=== PATIENT | female | born 1975 | race Caucasian/White ===

== ENCOUNTER → 2017-02-27 | Outpatient (CLI) | payer OTHER ==
--- NOTE | 2017-02-27 13:21 | MM ---
Reason for exam: clinical finding. History: Family history of breast cancer in sister. Benign excisional biopsy of the left breast, May 25, 2002. Indicated problem(s): lump or thickening in the left breast. Physical Findings: Nurse did not find any significant physical abnormalities on exam. MG Diagnostic Mammo w CAD ONEL Bilateral CC and MLO view(s) were taken. LM, spot compression MLO, and spot compression CC view(s) were taken of the left breast. The breast tissue is heterogeneously dense. This may lower the sensitivity of mammography. Developing asymmetry left posterior upper outer quadrant does not go away on additional views. Linear scar upper outer quadrant. These results were verbally communicated with the patient and result sheet given to the patient on 02/27/17. ASSESSMENT: Incomplete: need additional imaging evaluation, BI-RAD 0 RECOMMENDATION: Ultrasound of the left breast.
--- NOTE | 2017-02-27 13:25 | USB ---
Reason for exam: additional evaluation requested from abnormal screening. History: Family history of breast cancer in sister. Benign excisional biopsy of the left breast, May 25, 2002. US Breast Limited LT Left breast ultrasound demonstrates a 0.8 x 0.7 x 0.6cm solid lesion at 1:30. These results were verbally communicated with the patient and result sheet given to the patient on 02/27/17. ASSESSMENT: Suspicious, BI-RAD 4 RECOMMENDATION: Ultrasound core biopsy of the left breast. Called Dr. Russell with mammographic findings and has scheduled an appointment for the patient for 03/27/17 at 8:[address] Carter. Biopsy scheduled for 03/07/17 at 11:30. PRELIMINARY REPORT CALLED AND FAXED TO DR. CARTER ON 02/27/17 AT 300/TP.
== END | disposition home or self-care (01) ==
LOC: RADMAMWWP 10:07
PROVIDERS: ATTEND Family Medicine
DX: R92.8 Other abnormal and inconclusive findings on diagnostic imaging of breast (principal); N63 Unspecified lump in breast
CPT/HCPCS: 76642; G0204

== ENCOUNTER → 2017-03-12 | Day surgery (SDC) | payer OTHER ==
[2017-03-12 12:02] VITALS: BP 102/67; PULSE 82; RESP 12; TEMP 97.4; BMI 22.6
--- NOTE | 2017-03-12 15:00 | USB ---
EXAMINATION TYPE: US discontinued breast bx left DATE OF EXAM: 03/12/2017 CLINICAL HISTORY: R92.8 ABN ultrasound breast. TECHNIQUE: Scheduled Ultrasound guided core biopsy of left breast. Real-time linear array sonography is performed. COMPARISON: 02/27/2017 FINDINGS: Imaging was performed. The area in question of the left upper outer quadrant 1:30 position could not be reproduced at this time. Real-time observation, and real-time scanning was performed by the radiologist. 5 cm from the nipple no abnormality was identified. Imaging is compared to the mammo gram of 02/27/2017. IMPRESSION: 1. Probably benign findings, ultrasound. Recommendations: 1. Follow-up right breast mammogram 6 months. 2. Follow-up right breast ultrasound 6 months. 3. Patient should continue monthly self breast exam. 4. Negative ultrasound should not preclude biopsy of suspicious palpable areas.
== END ==
LOC: RADUSWWP 11:30
PROVIDERS: ATTEND Surgery
DX: R92.8 Other abnormal and inconclusive findings on diagnostic imaging of breast (principal)

== ENCOUNTER → 2017-04-30 | Outpatient (CLI) | payer OTHER ==
--- NOTE | 2017-05-01 08:00 | BMR ---
EXAMINATION TYPE: MR breast BILAT wo/w con DATE OF EXAM: 04/30/2017 HISTORY: abn mammogram, palpable lump left breast, history of benign lumpectomy 15 years ago. CONTRAST: Multiplanar, multisequence images of the breasts were acquired utilizing 15 mL intravenous MultiHance gadolinium contrast. TECHNIQUE: A series of fat and water weighted images in the long and short axis views of both breasts are obtained in conjunction with dynamic contrast MRI with subtraction technique. Three-dimensional and additional postprocessing imaging is created on independent workstation and reviewed during offi cial interpretation of this study. REFERENCE: Diagnostic bilateral breast mammogram February 27 2017 BI-RADS 0. Diagnostic left breast ultras ound February 27, 2017 BI-RADS 4. FINDINGS: There is background heterogeneously dense fibroglandular tissue present bilaterally. No landy picious skin thickening is seen bilaterally. There is fairly symmetric moderate background enhancemen t identified. Post contrast images demonstrate a 2.1 x 1.3 x 1.0 cm area of nonmass enhancement upper aspect of right breast roughly 4 cm from the nipple 1:00 level, dynamic imaging shows progressive be nign type enhancement. In addition there are scattered foci of benign type progressive enhancement th roughout both breasts identified. There is no suspicious mass or enhancement at area of mammogram and ultrasound concern posterior upper outer aspect of left breast near the chest wall. There are benign -appearing axillary lymph nodes noted bilaterally. Chest wall is intact. No suspicious intramammary a denopathy is seen. IMPRESSION: No MRI evidence for invasive malignancy in either breast. BI-RADS 2 benign findings right breast. BI-RADS 2 benign findings left breast. Recommendation: Would advise repeat diagnostic left breast mammogram and ultrasound in 5-6 months jim e to ensure benign findings left breast despite negative MRI due to prior abnormalities on these moda lities.
== END ==
LOC: RADMRIMAIN 12:06
PROVIDERS: ATTEND Surgery
DX: R92.8 Other abnormal and inconclusive findings on diagnostic imaging of breast (principal)
CPT/HCPCS: 0159T; C8908; A9577; 77059

== ENCOUNTER 2018-04-20 09:22 | Emergency (ER) | payer OTHER ==
--- NOTE | 2018-04-20 09:40 | ED ---
General Adult HPI - General Chief complaint: Extremity Injury, Upper Stated complaint: rt hand injury Time Seen by Provider: 04/20/18 09:31 Source: patient, RN notes reviewed Mode of arrival: ambulatory Limitations: no limitations - History of Present Illness Initial comments: Patient 42-year-old female presented to the emergency room today with a chief complaint of injury to the right hand that occurred this morning. She states she got into an argument on the phone with her boss. She states she was upset she punched a dresser drawer. She does admit to pain over the fifth digit and metacarpal. Patient denies any other complaints or symptoms. - Related Data Home Medications Medication Instructions Recorded Confirmed Ibuprofen [Motrin Ib] 400 mg PO Q6H PRN 04/20/18 04/20/18 Previous Rx's Medication Instructions Recorded Ibuprofen [Motrin] 600 mg PO Q6HR PRN #40 day 04/20/18 Allergies Allergy/AdvReac Type Severity Reaction Status Date / Time No Known Allergies Allergy Verified 04/20/18 09:44 Review of Systems ROS Statement: Those systems with pertinent positive or pertinent negative responses have been documented in the HPI. ROS Other: All systems not noted in ROS Statement are negative. Past Medical History Past Medical History: No Reported History History of Any Multi-Drug Resistant Organisms: None Reported Past Surgical History: Appendectomy, Section Additional Past Surgical History / Comment(s): eye Past Anesthesia/Blood Transfusion Reactions: No Reported Reaction Past Psychological History: No Psychological Hx Reported Smoking Status: Current every day smoker Past Alcohol Use History: None Reported Past Drug Use History: None Reported General Exam - General Exam Comments Initial Comments: General: The patient is awake and alert, in no distress, and does not appear acutely ill. Neck: The neck is supple, there is no tenderness or JVD. Musculoskeletal: Patient does have some bruising and swelling to the fifth digit and fifth metacarpal right hand. Sensations intact with cap refill less 2 seconds. Radial pulses 2+. Neurological: A&O x 3. CN II-XII intact, There are no obvious motor or sensory deficits. Coordination appears grossly intact. Speech is normal. Skin: Skin is warm and dry and no rashes or lesions are noted. Psychiatric: Normal mood and affect. Limitations: no limitations Course Vital Signs 04/20/18 09:24 Temperature 98 F Pulse Rate 68 Respiratory 18 Rate Blood Pressure 128/82 O2 Sat by Pulse 98 Oximetry Medical Decision Making - Medical Decision Making X-ray reviewed does show minimally displaced fracture of the proximal fifth digit of the right hand. Ulnar gutter was placed and some mild traction was used to reposition finger. Patient tolerated well. Patient is advised follow- up with orthopedics in the next emergency room symptoms and concerns. Disposition Clinical Impression: Finger fracture Disposition: HOME SELF-CARE Condition: Good Instructions: Finger Fracture (ED) Additional Instructions: Please continue to ice elevate the affected area splinted in place until follow- up appointment with orthopedics over the next 2 days. Please return to emergency room if the symptoms increase or worsen or for any other concerns. Prescriptions: Ibuprofen [Motrin] 600 mg PO Q6HR PRN #40 day PRN Reason: Pain Is patient prescribed a controlled substance at d/c from ED?: No Referrals: Miguel Russell MD [Primary Care Provider] - 1-2 days Kristopher Diaz MD [STAFF PHYSICIAN] - 1-2 days Time of Disposition: 10:13
--- NOTE | 2018-04-20 09:56 | XR ---
EXAMINATION TYPE: XR hand complete RT DATE OF EXAM: 04/20/2018 CLINICAL HISTORY: Fifth digit pain after punching dresser today. TECHNIQUE: Frontal, lateral and oblique images of the right hand are obtained. COMPARISON: None. FINDINGS: There is an angulated, minimally comminuted, mildly displaced impaction fracture of the met adiaphysis of the fifth proximal phalanx. There is approximately 7 mm ulnar-sided and 3 mm radial violeta ed cortical overlap from impaction. There is volar mild angulation and 2 mm anterior displacement of the markers distal fracture fragment. Overlying soft tissue swelling is seen. No intra-articular exte nsion. No additional fracture of the right hand. No radiopaque foreign body. IMPRESSION: Mildly comminuted, mildly angulated, mildly displaced impaction fracture of the proximal metadiaphysis of the fifth right proximal phalanx with overlying soft tissue swelling.
[2018-04-20] MEDS ORDERED: IBUPROFEN 600 MG TAB PO STA (10:13)
[2018-04-20 10:28] VITALS: BP 135/65; PULSE 56; RESP 17; TEMP 98.9
== END 2018-04-20 10:29 | disposition home or self-care (01) ==
LOC: EC 09:22
DX: S62.616A Displaced fracture of proximal phalanx of right little finger, initial encounter for closed fracture (principal); F17.200 Nicotine dependence, unspecified, uncomplicated; W22.8XXA Striking against or struck by other objects, initial encounter
CPT/HCPCS: 29125; 99283

== ENCOUNTER 2019-01-18 08:31 | Emergency (ER) | payer OTHER ==
[2019-01-18 08:38] VITALS: BP 131/78; PULSE 72; RESP 18; TEMP 97.9
[2019-01-18] MEDS ORDERED: KETOROLAC 60 MG/2 ML VIAL IM STA (08:56)
--- NOTE | 2019-01-18 09:13 | XR ---
EXAMINATION TYPE: XR cervical spine comp DATE OF EXAM: 01/18/2019 TECHNIQUE: Frontal, lateral, oblique, swimmers, and open mouth view of the cervical spine are obtaine d. HISTORY: Neck pain radiating to left arm COMPARISON: None FINDINGS: The cervical spine is visualized in its entirety from C1 thru the top of T1 level, it is s atisfactory in alignment without evidence of acute fracture or dislocation. Anterior osteophytes are seen at C5-C6 and C6-C7 with uncovertebral hypertrophy at this level. The pre-vertebral soft tissue appears within normal limits. The C1-C2 articulation is within normal limits on the open mouth view. The oblique images demonstrate mild neural foraminal narrowing at C5-C6 and C6-C7 bilaterally. IMPRESSION: No acute fracture or malalignment is seen in the cervical spine. Mild degenerative disc disease of the cervical spine at C5-C6 and C6-C7 resulting in mild radiographic bilateral neural fora chantel narrowing at these levels.
--- NOTE | 2019-01-18 09:24 | ED ---
Neck Injury/Pain HPI - General Chief Complaint: Neck Pain/Injury Stated Complaint: neck/shoulder pain Time Seen by Provider: 01/18/19 08:47 Source: patient, RN notes reviewed Mode of arrival: ambulatory Limitations: no limitations - History of Present Illness Initial Comments: 43-year-old female presents emergency Department chief complaint of neck pain, left arm pain. Patient states symptoms started 3 days ago when she woke up. Patient states pain has progressed. Patient states symptoms are worse with left arm movement. She does not have any current paresthesias. She states the pain rates and left-sided her neck down to her left elbow. Patient denies any trauma sagrario right-hand dominant. Patient states that symptoms are just exacerbated by movement of the left arm which was worse at work today. Denies chest pain or shortness breath. - Related Data Home Medications Medication Instructions Recorded Confirmed Multivitamins, Thera [Multivitamin 1 tab PO HS 01/18/19 01/18/19 (formulary)] Naproxen Sodium [Aleve] 440 mg PO DAILY PRN 01/18/19 01/18/19 Previous Rx's Medication Instructions Recorded Diazepam [Valium] 5 mg PO Q8HR PRN 3 Days #9 tab 01/18/19 Ibuprofen [Motrin] 600 mg PO Q8HR PRN #20 tab 01/18/19 Allergies Allergy/AdvReac Type Severity Reaction Status Date / Time No Known Allergies Allergy Verified 01/18/19 08:53 Review of Systems ROS Statement: Those systems with pertinent positive or pertinent negative responses have been documented in the HPI. ROS Other: All systems not noted in ROS Statement are negative. Past Medical History Past Medical History: No Reported History History of Any Multi-Drug Resistant Organisms: None Reported Past Surgical History: Appendectomy, Section Additional Past Surgical History / Comment(s): eye Past Anesthesia/Blood Transfusion Reactions: No Reported Reaction Past Psychological History: No Psychological Hx Reported Smoking Status: Current every day smoker Past Alcohol Use History: None Reported Past Drug Use History: None Reported General Exam Limitations: no limitations General appearance: alert, in no apparent distress Head exam: Present: atraumatic, normocephalic, normal inspection Eye exam: Present: normal appearance, PERRL, EOMI. Absent: scleral icterus, conjunctival injection, periorbital swelling ENT exam: Present: normal exam, normal oropharynx, mucous membranes moist, TM's normal bilaterally Neck exam: Present: normal inspection, tenderness (Tenderness to the left paraspinal region), full ROM (Patient has full range of motion though reports moderate discomfort especially with right rotation). Absent: meningismus, lymphadenopathy Respiratory exam: Present: normal lung sounds bilaterally. Absent: respiratory distress, wheezes, rales, rhonchi, stridor Cardiovascular Exam: Present: regular rate, normal rhythm, normal heart sounds. Absent: systolic murmur, diastolic murmur, rubs, gallop, clicks Extremities exam: Present: other (For range of motion of upper extremity, transitions manager strength equal bilaterally, radial pulses equal) Course Vital Signs 01/18/19 08:35 Temperature 97.9 F Pulse Rate 72 Respiratory 18 Rate Blood Pressure 131/78 O2 Sat by Pulse 100 Oximetry Medical Decision Making - Medical Decision Making 43-year-old female presented for left arm, left-sided neck discomfort. Patient has paraspinal tenderness and muscle spasms noted. X-ray was obtained shows degenerative changes C5-C6 C6-C7 Disposition Clinical Impression: Cervical radiculopathy, Cervical paraspinal muscle spasm Disposition: HOME SELF-CARE Condition: Stable Instructions (If sedation given, give patient instructions): Cervical Radiculopathy (ED), Acute Neck Pain (ED) Additional Instructions: Please return to the Emergency Department if symptoms worsen or any other concerns. Prescriptions: Ibuprofen [Motrin] 600 mg PO Q8HR PRN #20 tab PRN Reason: Pain Diazepam [Valium] 5 mg PO Q8HR PRN 3 Days #9 tab PRN Reason: muscle spasms Is patient prescribed a controlled substance at d/c from ED?: Yes When asked, does pt state using other controlled substances?: No If prescribed controlled substance>3 days was MAPS reviewed?: Prescribed <3 Days Referrals: Miguel Russell MD [Primary Care Provider] - 1-2 days Time of Disposition: 09:24
[2019-01-18] MEDS ORDERED: ACET/COD 300 MG/30 MG STARTER PACK 6 TAB BTL PO STA (09:25)
== END 2019-01-18 09:45 | disposition home or self-care (01) ==
LOC: EC 08:31
DX: M54.12 Radiculopathy, cervical region (principal); M47.892 Other spondylosis, cervical region; F17.200 Nicotine dependence, unspecified, uncomplicated
CPT/HCPCS: 72050; 99283; 96372; J1885

== ENCOUNTER 2019-03-31 16:38 | Emergency (ER) | payer OTHER ==
[2019-03-31 17:03] VITALS: RESP 18
[2019-03-31] MEDS ORDERED: PANTOPRAZOLE 40 MG TABLET PO STA ×2 (17:08→17:42)
[2019-03-31] MEDS ORDERED: MAG HYDROX/AL HYDROX/SIMETH 30 ML, HYOSCYAMINE ELIXIR 10 ML, CIMETIDINE HCL 300 MG, LID... PO STA ×4 (17:08)
--- NOTE | 2019-03-31 17:13 | ED ---
General Adult HPI - General Chief complaint: Chest Pain Stated complaint: Chest pain Time Seen by Provider: 03/31/19 16:40 Source: patient, RN notes reviewed Mode of arrival: ambulatory Limitations: no limitations - History of Present Illness Initial comments: This is a 43-year-old female who presents emergency Department complaining of heartburn. Patient states it started about 2 weeks ago and it is been intermittent tickly worse if she lays flat or if she eats something spicy. Patient states she's had this for years but the last 2 weeks she's been extremely bad. Patient states last night it started up again before she went to bed and has been constant ever since. Patient states it's a burning sensation in her chest. Patient denies any radiation of the pain. Patient denies any difficulty breathing or shortness of breath per patient denies any diaphoretic episodes. Patient denies any nausea or vomiting. Patient denies any abdominal pain. Patient denies any back pain. Patient states she has no history of diabetes high blood pressure or high cholesterol however she does smoke a pack a day. Patient denies any family history of heart problems. Patient denies any calf pain or leg swelling. - Related Data Home Medications Medication Instructions Recorded Confirmed Calcium Carbonate [Tums] 2,000 mg PO QID PRN 03/31/19 03/31/19 Omeprazole Magnesium [PriLOSEC OTC] 20 mg PO DAILY 03/31/19 03/31/19 Allergies Allergy/AdvReac Type Severity Reaction Status Date / Time No Known Allergies Allergy Verified 03/31/19 17:09 Review of Systems ROS Statement: Those systems with pertinent positive or pertinent negative responses have been documented in the HPI. ROS Other: All systems not noted in ROS Statement are negative. Past Medical History Past Medical History: No Reported History History of Any Multi-Drug Resistant Organisms: None Reported Past Surgical History: Appendectomy, Section Additional Past Surgical History / Comment(s): eye Past Anesthesia/Blood Transfusion Reactions: No Reported Reaction Past Psychological History: No Psychological Hx Reported Smoking Status: Current every day smoker Past Alcohol Use History: None Reported Past Drug Use History: None Reported General Exam - General Exam Comments Initial Comments: GENERAL: Patient is well-developed and well-nourished. Patient is nontoxic and well- hydrated and is in mild distress. ENT: Neck is soft and supple. No significant lymphadenopathy is noted. Oropharynx is clear. Moist mucous membranes. Neck has full range of motion without eliciting any pain. EYES: The sclera were anicteric and conjunctiva were pink and moist. Extraocular movements were intact and pupils were equal round and reactive to light. Eyelids were unremarkable. PULMONARY: Unlabored respirations. Good breath sounds bilaterally. No audible rales rhonchi or wheezing was noted. CARDIOVASCULAR: There is a regular rate and rhythm without any murmurs gallops or rubs. ABDOMEN: Soft and nontender with normal bowel sounds. No palpable organomegaly was noted. There is no palpable pulsatile mass. SKIN: Skin is clear with no lesions or rashes and otherwise unremarkable. NEUROLOGIC: Patient is alert and oriented x3. Cranial nerves II through XII are grossly intact. Motor and sensory are also intact. Normal speech, volume and content. Symmetrical smile. MUSCULOSKELETAL: Normal extremities with adequate strength and full range of motion. No lower extremity swelling or edema. No calf tenderness. LYMPHATICS: No significant lymphadenopathy is noted PSYCHIATRIC: Normal psychiatric evaluation. Limitations: no limitations Course Vital Signs 03/31/19 03/31/19 03/31/19 16:39 17:02 17:45 Temperature 98.3 F Pulse Rate 80 64 71 Respiratory 16 18 18 Rate Blood Pressure 135/85 115/102 122/79 O2 Sat by Pulse 100 100 100 Oximetry 03/31/19 19:04 Temperature Pulse Rate 68 Respiratory 18 Rate Blood Pressure 121/79 O2 Sat by Pulse 100 Oximetry Medical Decision Making - Medical Decision Making EKG shows normal sinus rhythm at 60 bpm NH interval is 160 QRS is 82 QT interval 382 QTC is 406. Patient's EKG shows no ST segment elevation or depression or T wave abnormalities are noted. Patient received a GI cocktail when I went back into reevaluate the patient she stated that it took away about 80-90% of her discomfort. Patient states she still has a little burning sensation. Patient's labs came back within normal limits as did her chest x-ray I went back to talk to the patient she wanted to be discharged home and follow-up with her primary medical care doctor. - Lab Data Result diagrams: 03/31/19 17:00 03/31/19 17:00 Lab Results 03/31/19 03/31/19 03/31/19 Range/Units 17:00 17:00 17:00 WBC 11.0 H (3.8-10.6) k/uL RBC 4.61 (3.80-5.40) m/uL Hgb 14.9 (11.4-16.0) gm/dL Hct 43.7 (34.0-46.0) % MCV 94.7 (80.0-100.0) fL MCH 32.3 (25.0-35.0) pg MCHC 34.1 (31.0-37.0) g/dL RDW 12.8 (11.5-15.5) % Plt Count 364 (150-450) k/uL Neutrophils % 68 % Lymphocytes % 23 % Monocytes % 5 % Eosinophils % 1 % Basophils % 0 % Neutrophils # 7.5 (1.3-7.7) k/uL Lymphocytes # 2.5 (1.0-4.8) k/uL Monocytes # 0.6 (0-1.0) k/uL Eosinophils # 0.1 (0-0.7) k/uL Basophils # 0.0 (0-0.2) k/uL PT 10.4 (9.0-12.0) sec INR 1.0 (<1.2) APTT 26.1 (22.0-30.0) sec Sodium 138 (137-145) mmol/L Potassium 4.6 (3.5-5.1) mmol/L Chloride 104 (98-107) mmol/L Carbon Dioxide 23 (22-30) mmol/L Anion Gap 11 mmol/L BUN 16 (7-17) mg/dL Creatinine 0.98 (0.52-1.04) mg/dL Est GFR (CKD-EPI)AfAm 82 (>60 ml/min/1.73 sqM) Est GFR (CKD-EPI)NonAf 71 (>60 ml/min/1.73 sqM) Glucose 89 (74-99) mg/dL Calcium 11.5 H (8.4-10.2) mg/dL Magnesium 2.0 (1.6-2.3) mg/dL Total Bilirubin 0.8 (0.2-1.3) mg/dL AST 22 (14-36) U/L ALT 24 (9-52) U/L Alkaline Phosphatase 69 (38-126) U/L Troponin I (0.000-0.034) ng/mL Total Protein 7.7 (6.3-8.2) g/dL Albumin 4.8 (3.5-5.0) g/dL 03/31/19 Range/Units 17:00 WBC (3.8-10.6) k/uL RBC (3.80-5.40) m/uL Hgb (11.4-16.0) gm/dL Hct (34.0-46.0) % MCV (80.0-100.0) fL MCH (25.0-35.0) pg MCHC (31.0-37.0) g/dL RDW (11.5-15.5) % Plt Count (150-450) k/uL Neutrophils % % Lymphocytes % % Monocytes % % Eosinophils % % Basophils % % Neutrophils # (1.3-7.7) k/uL Lymphocytes # (1.0-4.8) k/uL Monocytes # (0-1.0) k/uL Eosinophils # (0-0.7) k/uL Basophils # (0-0.2) k/uL PT (9.0-12.0) sec INR (<1.2) APTT (22.0-30.0) sec Sodium (137-145) mmol/L Potassium (3.5-5.1) mmol/L Chloride (98-107) mmol/L Carbon Dioxide (22-30) mmol/L Anion Gap mmol/L BUN (7-17) mg/dL Creatinine (0.52-1.04) mg/dL Est GFR (CKD-EPI)AfAm (>60 ml/min/1.73 sqM) Est GFR (CKD-EPI)NonAf (>60 ml/min/1.73 sqM) Glucose (74-99) mg/dL Calcium (8.4-10.2) mg/dL Magnesium (1.6-2.3) mg/dL Total Bilirubin (0.2-1.3) mg/dL AST (14-36) U/L ALT (9-52) U/L Alkaline Phosphatase (38-126) U/L Troponin I <0.012 (0.000-0.034) ng/mL Total Protein (6.3-8.2) g/dL Albumin (3.5-5.0) g/dL Disposition Clinical Impression: Gastroesophageal reflux disease Disposition: HOME SELF-CARE Condition: Good Instructions (If sedation given, give patient instructions): Gastroesophageal Reflux Disease (ED) Additional Instructions: Patient should continue taking Prilosec daily Is patient prescribed a controlled substance at d/c from ED?: No Referrals: Miguel Russell MD [Primary Care Provider] - 1-2 days Time of Disposition: 20:01
--- NOTE | 2019-03-31 17:27 | XR ---
EXAMINATION TYPE: XR chest 2V DATE OF EXAM: 03/31/2019 COMPARISON: NONE HISTORY: Chest pain TECHNIQUE: Frontal and lateral views of the chest are obtained. FINDINGS: Heart and mediastinum are normal. Lungs are clear. Diaphragm is normal. Bony thorax appear s normal. IMPRESSION: Normal chest.
[2019-03-31 17:28] LABS: Basophils % (A) 0 %; Eosinophils # (A) 0.1 k/uL (0-0.7); Eosinophils % (A) 1 %; HCT 43.7 % (34.0-46.0); HGB 14.9 gm/dL (11.4-16.0); Lymphocytes # (A) 2.5 k/uL (1.0-4.8); Lymphocytes % (A) 23 %; MCH 32.3 pg (25.0-35.0); MCHC 34.1 g/dL (31.0-37.0); MCV 94.7 fL (80.0-100.0); Mean Platelet Volume 6.6; Monocytes # (A) 0.6 k/uL (0-1.0); Monocytes % (A) 5 %; Neutrophils # (A) 7.5 k/uL (1.3-7.7); Neutrophils % (A) 68 %; Platelet Count 364 k/uL (150-450); RBC 4.61 m/uL (3.80-5.40); RDW 12.8 % (11.5-15.5)
[2019-03-31 17:34] LABS: Albumin 4.8 g/dL (3.5-5.0); Calcium 11.5 mg/dL (8.4-10.2); Potassium 4.6 mmol/L (3.5-5.1); Total Bilirubin 0.8 mg/dL (0.2-1.3); Total Protein 7.7 g/dL (6.3-8.2)
[2019-03-31 17:37] LABS: Partial Thromboplastin Time 26.1 sec (22.0-30.0); Prothrombin Time 10.4 sec (9.0-12.0)
[2019-03-31 20:10] VITALS: BP 112/83; PULSE 67; TEMP 99.1
== END 2019-03-31 20:08 | disposition home or self-care (01) ==
LOC: EC 16:38
DX: K21.9 Gastro-esophageal reflux disease without esophagitis (principal); F17.200 Nicotine dependence, unspecified, uncomplicated
CPT/HCPCS: 36415; 71046; 80053; 83735; 84484; 85025; 85610; 85730; 93005; 99285

== ENCOUNTER 2019-08-09 09:56 | Emergency (ER) | payer OTHER ==
[2019-08-09 10:02] VITALS: RESP 18
--- NOTE | 2019-08-09 11:25 | XR ---
EXAMINATION TYPE: XR knee complete LT DATE OF EXAM: 08/09/2019 CLINICAL HISTORY: Left knee pain with no known injury TECHNIQUE: Three views of the left knee are obtained. COMPARISON: None. FINDINGS: There is no acute fracture/dislocation evident in left knee. The tri-compartment joint sp aces appear aligned with minimal medial compartment joint space narrowing and very small marginal ost eophytes of the medial compartment. The overlying soft tissue appears unremarkable. IMPRESSION: There is no acute fracture or dislocation in the left knee. Mild medial compartment arth ropathy.
--- NOTE | 2019-08-09 11:32 | ED ---
Lower Extremity Injury HPI - General Chief Complaint: Extremity Injury, Lower Stated Complaint: Leg pain Source: patient Mode of arrival: ambulatory Limitations: no limitations - History of Present Illness Initial Comments: 44-year-old female presenting for left leg pain and redness. Patient states she has pain along the medial aspect just distal to the knee. Patient states is tender to touch in this area. Patient states it began yesterday evening. Patient has a fever or flulike symptoms denies any coolness or pallor of the extremity denies any injury loss of sensation or decreased range of motion of the left knee joint patient denies any other complaints remaining review of systems negative upon arrival patient appears well no signs of acute distress - Related Data Home Medications Medication Instructions Recorded Confirmed Calcium Carbonate [Tums] 2,000 mg PO QID PRN 03/31/19 03/31/19 Omeprazole Magnesium [PriLOSEC OTC] 20 mg PO DAILY 03/31/19 03/31/19 Previous Rx's Medication Instructions Recorded Cephalexin [Keflex] 500 mg PO Q6HR 7 Days #28 cap 08/09/19 Allergies Allergy/AdvReac Type Severity Reaction Status Date / Time No Known Allergies Allergy Verified 08/09/19 09:59 Review of Systems ROS Statement: Those systems with pertinent positive or pertinent negative responses have been documented in the HPI. ROS Other: All systems not noted in ROS Statement are negative. Past Medical History Past Medical History: No Reported History History of Any Multi-Drug Resistant Organisms: None Reported Past Surgical History: Appendectomy, Section Additional Past Surgical History / Comment(s): eye Past Anesthesia/Blood Transfusion Reactions: No Reported Reaction Past Psychological History: No Psychological Hx Reported Smoking Status: Current every day smoker Past Alcohol Use History: None Reported Past Drug Use History: None Reported General Exam - General Exam Comments Initial Comments: General: The patient is awake and alert, in no distress, and does not appear acutely ill. Eye: +3 mm pupils are equal, round and reactive to light, extra-ocular movements are intact. No nystagmus. There is normal conjunctiva bilaterally. No signs of icterus. Cardiovascular: There is a regular rate and rhythm. No murmur, rub or gallop is appreciated. Respiratory: Lungs are clear to auscultation, respirations are non-labored, breath sounds are equal. No wheezes, stridor, rales, or rhonchi. Gastrointestinal: Soft, non-distended, non-tender abdomen without masses or organomegaly noted. There is no rebound or guarding present. Musculoskeletal: Normal ROM, no tenderness at the knees bilaterally and ankles. Strength 5/5 of the lower extremities equal and comparison bilaterally. Sensation intact. Pulses equal bilaterally 2+. Neurological: A&O x 3. CN II-XII intact grossly, There are no obvious motor or sensory deficits. Coordination appears grossly intact. Speech is normal. Skin: Skin is warm and dry and no rashes or lesions are noted. pain or swelling. Negative Homans bilaterally. Patient has mild soft tissue swelling and redness of the anterior proximal tibia extending medially. Masses. Psychiatric: Cooperative, appropriate mood & affect, normal judgment. Limitations: no limitations Course Vital Signs 08/09/19 08/09/19 10:00 11:46 Temperature 97.1 F L 99.0 F Pulse Rate 76 64 Respiratory 18 18 Rate Blood Pressure 134/79 100/65 O2 Sat by Pulse 100 98 Oximetry Medical Decision Making - Medical Decision Making 44-year-old female presenting for slight redness and swelling of the knee just distal to the joint. NG states negative for osseous process. No limitations and joint range of motion or diffuse joint swelling. Given the extension to the medial aspect DVT was ruled out with ultrasound. Patient has no history or known risk factors. Given the slight redness there's concern for developing cellulitis patient was started on antibiotic therapy return parameters discussed case discussed with attending provider and patient was discharged appearing well Disposition Clinical Impression: Leg pain Disposition: HOME SELF-CARE Condition: Good Instructions (If sedation given, give patient instructions): Cellulitis (ED) Additional Instructions: Please use medication as discussed. Please follow-up with family doctor in the next 2 days.. Please return to emergency room if the symptoms increase or worsen or for any other concerns. Prescriptions: Cephalexin [Keflex] 500 mg PO Q6HR 7 Days #28 cap Is patient prescribed a controlled substance at d/c from ED?: No Referrals: Miguel Russell MD [Primary Care Provider] - 1-2 days Time of Disposition: 11:42
--- NOTE | 2019-08-09 11:38 | US ---
EXAMINATION TYPE: US venous doppler duplex LE LT DATE OF EXAM: 08/09/2019 11:01 AM COMPARISON: NONE CLINICAL HISTORY: redness/swelling, medial aspect of knee?. tenderness left knee SIDE PERFORMED: left TECHNIQUE: The lower extremity deep venous system is examined utilizing real time linear array sonog zoë with graded compression, doppler sonography and color-flow sonography. VESSELS IMAGED: External Iliac Vein (EIV) Common Femoral Vein Deep Femoral Vein Greater Saphenous Vein * Femoral Vein Popliteal Vein Small Saphenous Vein * Proximal Calf Veins (* superficial vessels) Grayscale, color doppler, spectral doppler imaging performed of the deep veins of the left lower extr emity. There is normal flow, compressibility, vascular waveforms. Left Leg: No evidence of DVT IMPRESSION: No sonographic evidence of deep venous thrombosis within the left lower chimney.
[2019-08-09 11:47] VITALS: BP 100/65; PULSE 64; TEMP 99
== END 2019-08-09 12:01 | disposition home or self-care (01) ==
LOC: EC 09:56
DX: M79.605 Pain in left leg (principal); M79.89 Other specified soft tissue disorders; R23.8 Other skin changes; F17.200 Nicotine dependence, unspecified, uncomplicated; Z79.899 Other long term (current) drug therapy
CPT/HCPCS: 99284

== ENCOUNTER 2021-08-01 12:23 | Emergency (ER) | payer BC, OTHER ==
[2021-08-01] MEDS ORDERED: SUMAtriptan succinate 6 MG/0.5 ML VIAL SQ STA (13:18)
--- NOTE | 2021-08-01 13:50 | ED ---
Headache HPI - General Chief Complaint: Headache Stated Complaint: headache Time Seen by Provider: 08/01/21 12:30 Mode of arrival: ambulatory Limitations: no limitations - History of Present Illness Initial Comments: 46-year-old female presents to the emergency department with reported migraine. Patient has a history of such. She used to follow with a neurologist in the past. States she's had a complete workup to include an MRI and lumbar puncture. She had a tragus piercing done 5 years ago and states that she has not had a headache since. Reports that last night she woke up with a migraine headache consistent with her previous headaches. She denies any fevers, neck stiffness or sick contacts. Admits to photophobia. Admits to nausea with an episode of vomiting last night. This morning she went to the health Department and got her first Covid vaccine. She presents with a low-grade fever however she attributes it to her vaccination. States that she did not have a low-grade fever prior. She denies any head trauma. No vision changes. No chest pain, shortness of breath, cough, abdominal pain. No other alleviating, precipitating or modifying factors - Related Data Home Medications Medication Instructions Recorded Confirmed Naproxen Sodium [Aleve] 220 mg PO DAILY PRN 08/01/21 08/01/21 Allergies Allergy/AdvReac Type Severity Reaction Status Date / Time No Known Allergies Allergy Verified 08/01/21 15:18 Review of Systems ROS Statement: Those systems with pertinent positive or pertinent negative responses have been documented in the HPI. ROS Other: All systems not noted in ROS Statement are negative. Past Medical History Past Medical History: No Reported History Additional Past Medical History / Comment(s): migraines History of Any Multi-Drug Resistant Organisms: None Reported Past Surgical History: Appendectomy, Section Additional Past Surgical History / Comment(s): eye Past Anesthesia/Blood Transfusion Reactions: No Reported Reaction Past Psychological History: No Psychological Hx Reported Smoking Status: Current every day smoker Past Alcohol Use History: Occasional Past Drug Use History: Marijuana General Exam Limitations: no limitations General appearance: alert, in no apparent distress Head exam: Present: atraumatic, normocephalic, normal inspection Eye exam: Present: normal appearance, PERRL, EOMI. Absent: scleral icterus, conjunctival injection, periorbital swelling ENT exam: Present: normal exam, mucous membranes moist Neck exam: Present: normal inspection. Absent: tenderness, meningismus, lymphadenopathy Respiratory exam: Present: normal lung sounds bilaterally. Absent: respiratory distress, wheezes, rales, rhonchi, stridor Cardiovascular Exam: Present: regular rate, normal rhythm, normal heart sounds. Absent: systolic murmur, diastolic murmur, rubs, gallop, clicks GI/Abdominal exam: Present: soft, normal bowel sounds. Absent: distended, tenderness, guarding, rebound, rigid Extremities exam: Present: normal inspection, full ROM, normal capillary refill. Absent: tenderness, pedal edema, joint swelling, calf tenderness Back exam: Present: normal inspection Neurological exam: Present: alert, oriented X3, CN II-XII intact Psychiatric exam: Present: normal affect, normal mood Skin exam: Present: warm, dry, intact, normal color. Absent: rash Course Vital Signs 08/01/21 08/01/21 12:27 16:30 Temperature 99.8 F H 98.9 F Pulse Rate 80 86 Respiratory 18 17 Rate Blood Pressure 121/74 118/70 O2 Sat by Pulse 98 99 Oximetry - Reevaluation(s) Reevaluation #1: 08/01/21 15:01 patient re-evaluated. Just got imitrex. states headache slightly improved. offered nausea medications which she agreed to. as soon as I return to the computer to place order, get call from nurse saying patient is throwing up. Medical Decision Making - Medical Decision Making Upon arrival the patient is placed in a hallway 23. Thorough history and physical exam was performed. Patient reports to chronic migraine history which is relieved by Imitrex. Patient was given a dose. Shortly afterwards she is reevaluated and reports improvement in her headache however she begins having some nausea. She's given a dose of Toradol for additional pain control. IV is established and the patient is given a dose of saline, 10 mg of Reglan and 25 mg of Benadryl. Patient is reevaluated and vomiting has stopped. She feels comfortable for discharge at this time. Patient is instructed to follow up with the primary care doctor to in 2-4 days. Return if she does not have improvement in her symptoms. Patient agreed and was discharged home in stable condition Disposition Clinical Impression: Migraine Disposition: HOME SELF-CARE Condition: Stable Instructions (If sedation given, give patient instructions): Acute Headache (ED) Additional Instructions: Please follow-up with your primary care doctor in 2-4 days. Return to the emergency department for any new or worsening symptoms Is patient prescribed a controlled substance at d/c from ED?: No Referrals: None,Stated [Primary Care Provider] - 1-2 days Time of Disposition: 16:10
[2021-08-01] MEDS ORDERED: ONDANSETRON 4 MG/2 ML VIAL IVP STA (15:00)
[2021-08-01] MEDS ORDERED: KETOROLAC 15 MG/ML 1 ML VIAL IM STA (15:00)
[2021-08-01] MEDS ORDERED: SODIUM CHLORIDE 0.9% 1,000 ML IV STA (15:18)
[2021-08-01] MEDS ORDERED: METOCLOPRAMIDE 5 MG/ML 2 ML VIAL IVP STA (15:18)
[2021-08-01] MEDS ORDERED: diphenhydrAMINE 50 MG/ML 1 ML VIAL IVP STA (15:18)
[2021-08-01] MEDS ORDERED: DEXAMETHASONE SOD PHOSPHATE 10 MG/ML 1 ML VIAL IV STA (15:18)
[2021-08-01 16:36] VITALS: BP 118/70; PULSE 86; RESP 17; TEMP 98.9
== END 2021-08-01 16:30 | disposition home or self-care (01) ==
LOC: EC 12:23
DX: G43.909 Migraine, unspecified, not intractable, without status migrainosus (principal); F17.200 Nicotine dependence, unspecified, uncomplicated
CPT/HCPCS: 99284; 96374; 96375; 96372; J3030; J1200; J1100; J2765; J2405; J1885

== ENCOUNTER 2022-09-06 03:20 | Emergency (ER) | payer BC, OTHER ==
[2022-09-06 03:33] VITALS: BP 132/76; PULSE 87; RESP 16; TEMP 98
--- NOTE | 2022-09-06 04:52 | ED ---
URI HPI - General Chief Complaint: Upper Respiratory Infection Stated Complaint: Covid Exposure Time Seen by Provider: 09/06/22 03:57 Source: patient, RN notes reviewed, old records reviewed Mode of arrival: ambulatory Limitations: no limitations - History of Present Illness Initial Comments: This is a 47-year-old female to the emergency department for evaluation patient Dese for evaluation regards to maybe a mild headache but mostly complaining of coronavirus testing is needed for coronavirus testing due to having a positive exposure. MD Complaint: cough (Out headache) -: days(s) Severity: mild Severity scale (1-10): 1 Consistency: intermittent Improves With: nothing Worsens With: nothing Context: sick contacts Associated Symptoms: denies other symptoms Treatments Prior to Arrival: none - Related Data Home Medications Medication Instructions Recorded Confirmed Naproxen Sodium [Aleve] 220 mg PO DAILY PRN 08/01/21 08/01/21 Allergies Allergy/AdvReac Type Severity Reaction Status Date / Time No Known Allergies Allergy Verified 09/06/22 03:31 Review of Systems ROS Statement: Those systems with pertinent positive or pertinent negative responses have been documented in the HPI. ROS Other: All systems not noted in ROS Statement are negative. Past Medical History Past Medical History: No Reported History Additional Past Medical History / Comment(s): migraines History of Any Multi-Drug Resistant Organisms: None Reported Past Surgical History: Appendectomy, Section Additional Past Surgical History / Comment(s): eye Past Anesthesia/Blood Transfusion Reactions: No Reported Reaction Past Psychological History: No Psychological Hx Reported Smoking Status: Current every day smoker Past Alcohol Use History: Occasional Past Drug Use History: Marijuana General Exam Limitations: no limitations General appearance: alert, in no apparent distress Head exam: Present: atraumatic, normocephalic, normal inspection Eye exam: Present: normal appearance, PERRL, EOMI. Absent: scleral icterus, conjunctival injection, periorbital swelling ENT exam: Present: normal exam, mucous membranes moist Neck exam: Present: normal inspection. Absent: tenderness, meningismus, lymphadenopathy Respiratory exam: Present: normal lung sounds bilaterally. Absent: respiratory distress, wheezes, rales, rhonchi, stridor Cardiovascular Exam: Present: regular rate, normal rhythm, normal heart sounds. Absent: systolic murmur, diastolic murmur, rubs, gallop, clicks GI/Abdominal exam: Present: soft, normal bowel sounds. Absent: distended, tenderness, guarding, rebound, rigid Extremities exam: Present: normal inspection, full ROM, normal capillary refill. Absent: tenderness, pedal edema, joint swelling, calf tenderness Back exam: Present: normal inspection Neurological exam: Present: alert, oriented X3, CN II-XII intact Psychiatric exam: Present: normal affect, normal mood Skin exam: Present: warm, dry, intact, normal color. Absent: rash Course Vital Signs 09/06/22 03:31 Temperature 98 F Pulse Rate 87 Respiratory 16 Rate Blood Pressure 132/76 O2 Sat by Pulse 98 Oximetry - Reevaluation(s) Reevaluation #1: 09/05/22 Medical record is reviewed Patient symptoms improved here in the ER Patient informed of results and questions answered Medical Decision Making - Medical Decision Making 47 female to the emergency department for evaluation with a coronavirus exposure patient is positive for coronavirus and can be discharged home - Lab Data Lab Results 09/06/22 Range/Units 03:34 Coronavirus (PCR) Detected A (Not Detectd) Disposition Clinical Impression: Coronavirus infection Disposition: HOME SELF-CARE Condition: Good Instructions (If sedation given, give patient instructions): Coronavirus Disease 2019 (COVID-19) Is patient prescribed a controlled substance at d/c from ED?: No Referrals: Miguel Russell MD [Primary Care Provider] - 1-2 days
== END 2022-09-06 05:00 | disposition home or self-care (01) ==
LOC: EC 03:20
DX: U07.1 COVID-19 (principal); F17.200 Nicotine dependence, unspecified, uncomplicated; F12.90 Cannabis use, unspecified, uncomplicated
CPT/HCPCS: 87635; 99283

== ENCOUNTER 2023-08-20 02:09 | Emergency (ER) | payer BC, OTHER ==
[2023-08-20 02:28] VITALS: RESP 18
[2023-08-20] MEDS ORDERED: IBUPROFEN 800 MG TAB PO STA (02:54)
[2023-08-20] MEDS ORDERED: LIDOCAINE 5% PATCH TOPICAL STA (02:54)
--- NOTE | 2023-08-20 03:00 | ED ---
General Adult HPI - General Chief complaint: Back Pain/Injury Stated complaint: Lower back pain Time Seen by Provider: 08/20/23 02:48 Source: patient, RN notes reviewed, old records reviewed Mode of arrival: ambulatory Limitations: no limitations - History of Present Illness Initial comments: Patient is a 48-year-old female who presents emergency Department complaining of low back pain. Woke up this evening with low back pain. No history of it. Atraumatic. Denies any saddle anesthesias, lower extremity paralysis, urinary/bowel incontinence or retention treated. States it is worse with movement. No recent dysuria or hematuria. No abdominal pain. No nausea or vomiting. No other symptoms. is focal located to the right lower back. Presents for further evaluation. - Related Data Home Medications Medication Instructions Recorded Confirmed Naproxen Sodium [Aleve] 220 mg PO DAILY PRN 08/01/21 08/01/21 Previous Rx's Medication Instructions Recorded Lidocaine 5% Patch [Lidoderm 5% 1 each TP DAILY PRN 14 Days #14 08/20/23 Patch] patch Allergies Allergy/AdvReac Type Severity Reaction Status Date / Time No Known Allergies Allergy Verified 08/20/23 02:21 Review of Systems ROS Statement: Those systems with pertinent positive or pertinent negative responses have been documented in the HPI. Review of Systems: CONST: Denies fever EYES: Denies blurry vision ENT: Denies nasal congestion C/V: Denies Chest pain RESP: Denies shortness of breath GI: Denies abdominal pain : Denies dysuria SKIN: Denies rash. MSK: Endorses right lower back pain NEURO: Denies headache ROS Other: All systems not noted in ROS Statement are negative. Past Medical History Past Medical History: No Reported History Additional Past Medical History / Comment(s): migraines History of Any Multi-Drug Resistant Organisms: None Reported Past Surgical History: Appendectomy, Section Additional Past Surgical History / Comment(s): eye Past Anesthesia/Blood Transfusion Reactions: No Reported Reaction Past Psychological History: No Psychological Hx Reported Smoking Status: Current every day smoker Past Alcohol Use History: Occasional Past Drug Use History: Marijuana General Exam - General Exam Comments Initial Comments: General: Appears in no acute distress. HEAD: Normal with no signs of head trauma. EYES: EOMI. ENT: Hearing grossly intact. RESPIRATORY: No respiratory distress. C/V: Regular rate and rhythm. ABD: Abdomen is nondistended. EXT: No obvious deformity. Midline lower lumbar spine tenderness to palpation with radiation to the right paraspinal muscles. SKIN: No rashes or lesions observed on exposed skin. NEURO: Alert and oriented. Limitations: no limitations Course Vital Signs 08/20/23 08/20/23 02:20 04:41 Temperature 98 F 99.3 F Pulse Rate 59 L 58 L Respiratory 18 18 Rate Blood Pressure 123/78 126/80 O2 Sat by Pulse 99 100 Oximetry Medical Decision Making - Medical Decision Making Was pt. sent in by a medical professional or institution (, PA, ACDS BLOCK 1 OPERATOR, urgent care, hospital, or correction...) When possible be specific @ -No Did you speak to anyone other than the patient for history (EMS, parent, family, police, friend...)? What history was obtained from this source @ -No Did you review nursing and triage notes (agree or disagree)? Why? @ -I reviewed and agree with nursing and triage notes Were old charts reviewed (outside hosp., previous admission, EMS record, old EKG, old radiological studies, urgent care reports/EKG's, correction records)? Report findings @ -No old charts were reviewed Differential Diagnosis (chest pain, altered mental status, abdominal pain women, abdominal pain men, vaginal bleeding, weakness, fever, dyspnea, syncope, headache, dizziness, GI bleed, back pain, seizure, CVA, palpatations, mental health, musculoskeletal)? @ -Differential Back Pain: Strain, zoster, cauda equina syndrome, epidural abscess, vertebral osteomyelitis, discitis, fracture, subluxation, disc herniation, DJD, spinal stenosis, dissection, AAA, pancreatitis, peptic ulcer disease, pyelonephritis, kidney stone, this is not meant to be an all-inclusive list. EKG interpreted by me (3pts min.). @ -None done X-rays interpreted by me (1pt min.). @ -X-ray shows no obvious acute traumatic injury to the lumbar spine. CT interpreted by me (1pt min.). @ -None done U/S interpreted by me (1pt. min.). @ -None done What testing was considered but not performed or refused? (CT, X-rays, U/S, labs)? Why? @ -None What meds were considered but not given or refused? Why? @ -None Did you discuss the management of the patient with other professionals (professionals i.e. , PA, ACDS BLOCK 1 OPERATOR, lab, RT, psych nurse, drug abuse social worker, morning show newscast producer, teacher, bomb squad officer, casework manager)? Give summary @ -No Was smoking cessation discussed for >3mins.? @ -No Was critical care preformed (if so, how long)? @ -No Were there social determinants of health that impacted care today? How? (Homelessness, low income, unemployed, alcoholism, drug addiction, transportation, low edu. Level, literacy, decrease access to med. care, senior care, rehab)? @ -No Was there de-escalation of care discussed even if they declined (Discuss DNR or withdrawal of care, Hospice)? DNR status @ -No What co-morbidities impacted this encounter? (DM, HTN, Smoking, COPD, CAD, Cancer, CVA, ARF, Chemo, Hep., AIDS, mental health diagnosis, sleep apnea, morbid obesity)? @ -None Was patient admitted / discharged? Hospital course, mention meds given and route, prescriptions, significant lab abnormalities, going to OR and other pertinent info. @ -Based on the patient's presentation and physical exam, presents with musculoskeletal lower back pain. Exam relatively unremarkable other than mild tenderness palpation somewhat in the lower midline of the lumbar spine with radiation to the right paraspinal muscles. No concern for cauda equina syndrome. Vital signs within acceptable limits. Patient isn't medically treated with a lidocaine patch as well as Motrin. We'll obtain x-rays as well as urinalysis. Patient was in agreement this plan. X-ray unremarkable. Urinalysis negative for any signs of infection. Contaminated catch. On reevaluation, patient is feeling improved. We discussed results. Discharge home at this time with strict return precautions. Given a work note. I will provide the patient with a prescription for lidocaine patch. I instructed the patient to follow up with their PCP in the next 1-3 days. I explained that the patient should return to the emergency department if they experience any worsening symptoms. Strict return precautions were discussed with the patient. The patient expressed understanding of these instructions. I answered all questions that the patient had. The patient was discharged home in good condition with their prescriptions and follow up information. Undiagnosed new problem with uncertain prognosis? @ -No Drug Therapy requiring intensive monitoring for toxicity (Heparin, Nitro, Insulin, Cardizem)? @ -No Were any procedures done? @ -No Diagnosis/symptom? @ -Lumbar muscle strain Acute, or Chronic, or Acute on Chronic? @ -Acute Uncomplicated (without systemic symptoms) or Complicated (systemic symptoms)? @ -Uncomplicated Side effects of treatment? @ -none Exacerbation, Progression, or Severe Exacerbation] @ -no Poses a threat to life or bodily function? @ -no - Lab Data Lab Results 08/20/23 Range/Units 03:19 Urine Color Colorless Urine Appearance Clear (Clear) Urine pH 7.0 (5.0-8.0) Ur Specific Ada 1.002 (1.001-1.035) Urine Protein Negative (Negative) Urine Glucose (UA) Negative (Negative) Urine Ketones Negative (Negative) Urine Blood Negative (Negative) Urine Nitrite Negative (Negative) Urine Bilirubin Negative (Negative) Urine Urobilinogen 0.2 (<2.0) mg/dL Ur Leukocyte Esterase Trace H (Negative) Urine RBC 1 (0-5) /hpf Urine WBC 12 H (0-5) /hpf Ur Squamous Epith Cells 10 H (0-4) /hpf Amorphous Sediment Rare H (None) /hpf Urine Mucus Rare H (None) /hpf Disposition Clinical Impression: Muscle strain Disposition: HOME SELF-CARE Condition: Good Instructions (If sedation given, give patient instructions): Acute Low Back Pain (ED) Prescriptions: Lidocaine 5% Patch [Lidoderm 5% Patch] 1 each TP DAILY PRN 14 Days #14 patch PRN Reason: Pain Is patient prescribed a controlled substance at d/c from ED?: No Referrals: Miguel Russell MD [Primary Care Provider] - 1-2 days Time of Disposition: 05:26
[2023-08-20 04:13] LABS: Appearance,Urine Clear (Clear); Bilirubin,Urine Negative (Negative); Blood,Urine Negative (Negative); Color,Urine Colorless; Glucose,Urine (UA) Negative (Negative); Ketones,Urine Negative (Negative); Protein,Urine Negative (Negative); Specific Gravity,Urine 1.002 (1.001-1.035)
[2023-08-20 04:14] LABS: Amorphous Sediment,Urine Rare /hpf; Leukocyte Esterase,Urine Trace (Negative); Mucus,Urine Rare /hpf; Nitrite,Urine Negative (Negative); RBC,Urine 1 /hpf (0-5); Squamous Epithelial Cell,Urine 10 /hpf (0-4); Urobilinogen,Urine 0.2 mg/dL (<2.0); WBC,Urine 12 /hpf (0-5)
[2023-08-20 04:43] VITALS: BP 126/80; PULSE 58; TEMP 99.3
--- NOTE | 2023-08-20 06:50 | XR ---
EXAM: XR Lumbosacral Spine, 2 or 3 Views CLINICAL HISTORY: ITS.REASON XR Reason: lumbar spine pain TECHNIQUE: Frontal and lateral views of the lumbar spine and sacrum. COMPARISON: No relevant prior studies available. FINDINGS: Vertebrae: No definite acute fracture. Normal alignment. Sacrum/coccyx: Coccyx incompletely imaged. No definite acute fracture of the sacrum. Disc spaces: Mild narrowing at L5-S1 Soft tissues: Suboptimally evaluated by plain film. Radiopaque metallic object projects over the sacrum. IMPRESSION: No definite acute fracture or traumatic subluxation. Disc narrowing at L5-S1. MRI would significantly better evaluate underlying degenerative change.
== END 2023-08-20 05:52 | disposition home or self-care (01) ==
LOC: EC 02:09
DX: S39.012A Strain of muscle, fascia and tendon of lower back, initial encounter (principal); F12.90 Cannabis use, unspecified, uncomplicated; F17.200 Nicotine dependence, unspecified, uncomplicated; X58.XXXA Exposure to other specified factors, initial encounter
CPT/HCPCS: 72100; 81001; 99284

== ENCOUNTER 2024-06-16 15:44 | Emergency (ER) | payer BC, OTHER ==
--- NOTE | 2024-06-16 16:33 | ED ---
Abdominal Pain HPI - General Chief Complaint: Abdominal Pain Stated Complaint: L side pain Time Seen by Provider: 06/16/24 16:25 Source: patient, RN notes reviewed Mode of arrival: wheelchair Limitations: no limitations - History of Present Illness Initial Comments: This is a 48-year-old female who presents to the emergency department for abdominal pain. Reports pain over the left mid to lower abdomen starting about a week ago. Denies any nausea/vomiting or urinary symptoms. States that she felt like the area was swelling yesterday. She went to urgent care and was advised that this may be related to kidney stones. Denies any history of kidney stones. States that they tested her urine and then it was clear. She has noticed that the pain seems to be worse with movement or if she leans on that area. - Related Data Home Medications Medication Instructions Recorded Confirmed Tylenol Rapid Release 500mg 1,000 mg PO Q6H PRN 06/16/24 06/16/24 Previous Rx's Medication Instructions Recorded Ketorolac [Toradol] 10 mg PO Q6HR PRN #15 tab 06/16/24 methocarbamoL [Robaxin-750] 1,500 mg PO TID PRN #30 tab 06/16/24 Allergies Allergy/AdvReac Type Severity Reaction Status Date / Time No Known Allergies Allergy Verified 06/16/24 18:19 Review of Systems ROS Statement: Those systems with pertinent positive or pertinent negative responses have been documented in the HPI. ROS Other: All systems not noted in ROS Statement are negative. Past Medical History Past Medical History: No Reported History Additional Past Medical History / Comment(s): migraines History of Any Multi-Drug Resistant Organisms: None Reported Past Surgical History: Appendectomy, Section Additional Past Surgical History / Comment(s): eye Past Anesthesia/Blood Transfusion Reactions: No Reported Reaction Past Psychological History: No Psychological Hx Reported Smoking Status: Current every day smoker Past Alcohol Use History: Occasional Past Drug Use History: Marijuana General Exam - General Exam Comments Initial Comments: Visual Physical Exam Vital signs reviewed General: Well-appearing, nontoxic, no acute distress. Head: Normocephalic, atraumatic Eyes: PERRLA, EOMI ENT: Airway patent Chest: Nonlabored breathing Skin: No visual rash, normal skin tone Neuro: Alert and oriented 3 Musculoskeletal: No gross abnormalities Limitations: no limitations General appearance: alert, in no apparent distress Head exam: Present: atraumatic, normocephalic, normal inspection Respiratory exam: Present: normal lung sounds bilaterally. Absent: respiratory distress, wheezes, rales, rhonchi, stridor Cardiovascular Exam: Present: regular rate, normal rhythm, normal heart sounds. Absent: systolic murmur, diastolic murmur, rubs, gallop, clicks GI/Abdominal exam: Present: soft, tenderness (Left mid abdomen), normal bowel sounds. Absent: distended Neurological exam: Present: alert, oriented X3, CN II-XII intact Psychiatric exam: Present: normal affect, normal mood Skin exam: Present: warm, dry, intact, normal color. Absent: rash Course Vital Signs 06/16/24 06/16/24 16:11 19:40 Temperature 98.2 F 97.9 F Pulse Rate 86 73 Respiratory 16 18 Rate Blood Pressure 132/85 147/92 O2 Sat by Pulse 100 100 Oximetry Medical Decision Making - Medical Decision Making This is a 48 year old female who presents to the emergency department for abdominal pain. Was pt. sent in by a medical professional or institution? @ -No Did you speak to anyone other than the patient for history? @ -No Did you review nursing and triage notes? @ -Yes, and I agree, it is accurate with regards to the patient's symptoms. Were old charts reviewed? @ -No Differential Diagnosis? @ -Differential Abdominal Pain Men: Appendicitis, cholecystitis, diverticulosis, ischemic bowel, pancreatitis, hepa titis, UTI, gastroenteritis, AAA, incarcerated hernia, bowel obstruction, constipation, inflammatory bowel, hepatitis, peptic ulcer disease, splenic infarction, perforated viscus, testicular torsion, this is not meant to be an all-inclusive list EKG interpreted by me (3pts min.)? @ -EKG interpreted by me demonstrating the following: Sinus bradycardia. Ventricular rate 56 bpm, GA interval 180 ms, QRS duration 81 ms, QTc 450 ms. X-rays interpreted by me (1pt min.)? @ -Not obtained CT interpreted by me (1pt min.)? @ -CT scan of the abdomen and pelvis obtained. My interpretation identifies no evidence of a ureteral calculus. U/S interpreted by me (1pt. min.)? @ -Not obtained What testing was considered but not performed? (CT, X-rays, U/S, labs)? Why? @ -None What meds were considered but not given? Why? @ -None Did you discuss the management of the patient with other professionals? @ -No Did you reconcile home meds? @ -No Was smoking cessation discussed for >3mins.? @ -I discussed smoking cessation for greater than 3 minutes. The risk of smoking were discussed with the patient including but not limited to risks of cancer, stroke, coronary artery disease and COPD. Also discussed with patient were multiple methods of quitting smoking. Lastly we discussed the financial cost of smoking. Was critical care preformed (if so, how long)? @ -No Were there social determinants of health that impacted care today? How? (Homelessness, low income, unemployed, alcoholism, drug addiction, transportation, low edu. Level, literacy, decrease access to med. care, alf, rehab)? @ -No Was there de-escalation of care discussed even if they declined? (Discuss DNR or withdrawal of care, Hospice)? @ -No What co-morbidities impacted this encounter? (DM, HTN, Smoking, COPD, CAD, Cancer, CVA, Hep., AIDS, mental health diagnosis, sleep apnea, morbid obesity)? @ -Smoking Was patient admitted / discharged? @ -Discharged. Lab work unremarkable. Urinalysis negative for signs of infection. CT scan of the abdomen and pelvis reveals no acute process. Symptoms well-controlled in the emergency department. Discussed that the cause of her symptoms is not entirely clear and she will need to follow-up with her primary care provider for further evaluation of ongoing symptoms. Symptoms may be a musculoskeletal problem given that they are worse with movement. Prescription for Toradol and Robaxin provided. Patient discharged home in stable condition. Case discussed with ED attending Dr. Harrison. Return precautions reviewed in depth, the patient is instructed to return to the emergency department with any new, worsening, or concerning symptoms. Patient verbalized understanding. Undiagnosed new problem with uncertain prognosis? @ -None Drug Therapy requiring intensive monitoring for toxicity (Heparin, Nitro, Insulin, Cardizem)? @ -None Were any procedures done? @ -None Diagnosis/symptom? @ -Abdominal pain Acute, or Chronic, or Acute on Chronic? @ -Acute Uncomplicated (without systemic symptoms) or Complicated (systemic symptoms)? @ -Uncomplicated Side effects of treatment? @ -None Exacerbation, Progression, or Severe Exacerbation] @ -Not applicable Poses a threat to life or bodily function? @ -No - Lab Data Result diagrams: 06/16/24 17:20 06/16/24 17:20 Lab Results 06/16/24 06/16/24 06/16/24 Range/Units 17:20 17:20 17:20 WBC 9.7 (3.8-10.6) k/uL RBC 4.16 (3.80-5.40) m/uL Hgb 13.6 (11.4-16.0) gm/dL Hct 40.8 (34.0-46.0) % MCV 98.2 (80.0-100.0) fL MCH 32.8 (25.0-35.0) pg MCHC 33.4 (31.0-37.0) g/dL RDW 13.0 (11.5-15.5) % Plt Count 426 (150-450) k/uL MPV 7.1 Neutrophils % 61 % Lymphocytes % 32 % Monocytes % 5 % Eosinophils % 1 % Basophils % 0 % Neutrophils # 5.9 (1.3-7.7) k/uL Lymphocytes # 3.1 (1.0-4.8) k/uL Monocytes # 0.4 (0-1.0) k/uL Eosinophils # 0.1 (0-0.7) k/uL Basophils # 0.0 (0-0.2) k/uL Sodium 138 (137-145) mmol/L Potassium 3.9 (3.5-5.1) mmol/L Chloride 108 H (98-107) mmol/L Carbon Dioxide 24 (22-30) mmol/L Anion Gap 6 mmol/L BUN 9 (7-17) mg/dL Creatinine 0.66 (0.52-1.04) mg/dL Est GFR (CKD-EPI)AfAm >90 (>60 ml/min/1.73 sqM) Est GFR (CKD-EPI)NonAf >90 (>60 ml/min/1.73 sqM) Glucose 87 (74-99) mg/dL Plasma Lactic Acid Abelardo (0.7-2.0) mmol/L Calcium 9.9 (8.4-10.2) mg/dL Total Bilirubin 1.1 (0.2-1.3) mg/dL AST 27 (14-36) U/L ALT 26 (4-34) U/L Alkaline Phosphatase 57 (38-126) U/L Total Protein 7.5 (6.3-8.2) g/dL Albumin 5.0 (3.5-5.0) g/dL Amylase 43 (30-110) U/L Lipase 56 (23-300) U/L Urine Color Colorless Urine Appearance Clear (Clear) Urine pH 6.0 (5.0-8.0) Ur Specific Ponder 1.003 (1.001-1.035) Urine Protein Negative (Negative) Urine Glucose (UA) Negative (Negative) Urine Ketones Negative (Negative) Urine Blood Trace H (Negative) Urine Nitrite Negative (Negative) Urine Bilirubin Negative (Negative) Urine Urobilinogen <2.0 (<2.0) mg/dL Ur Leukocyte Esterase Negative (Negative) Urine RBC <1 (0-5) /hpf Urine WBC <1 (0-5) /hpf Ur Squamous Epith Cells <1 (0-4) /hpf 06/16/24 Range/Units 17:20 WBC (3.8-10.6) k/uL RBC (3.80-5.40) m/uL Hgb (11.4-16.0) gm/dL Hct (34.0-46.0) % MCV (80.0-100.0) fL MCH (25.0-35.0) pg MCHC (31.0-37.0) g/dL RDW (11.5-15.5) % Plt Count (150-450) k/uL MPV Neutrophils % % Lymphocytes % % Monocytes % % Eosinophils % % Basophils % % Neutrophils # (1.3-7.7) k/uL Lymphocytes # (1.0-4.8) k/uL Monocytes # (0-1.0) k/uL Eosinophils # (0-0.7) k/uL Basophils # (0-0.2) k/uL Sodium (137-145) mmol/L Potassium (3.5-5.1) mmol/L Chloride (98-107) mmol/L Carbon Dioxide (22-30) mmol/L Anion Gap mmol/L BUN (7-17) mg/dL Creatinine (0.52-1.04) mg/dL Est GFR (CKD-EPI)AfAm (>60 ml/min/1.73 sqM) Est GFR (CKD-EPI)NonAf (>60 ml/min/1.73 sqM) Glucose (74-99) mg/dL Plasma Lactic Acid Abelardo 0.6 L (0.7-2.0) mmol/L Calcium (8.4-10.2) mg/dL Total Bilirubin (0.2-1.3) mg/dL AST (14-36) U/L ALT (4-34) U/L Alkaline Phosphatase (38-126) U/L Total Protein (6.3-8.2) g/dL Albumin (3.5-5.0) g/dL Amylase (30-110) U/L Lipase (23-300) U/L Urine Color Urine Appearance (Clear) Urine pH (5.0-8.0) Ur Specific Ponder (1.001-1.035) Urine Protein (Negative) Urine Glucose (UA) (Negative) Urine Ketones (Negative) Urine Blood (Negative) Urine Nitrite (Negative) Urine Bilirubin (Negative) Urine Urobilinogen (<2.0) mg/dL Ur Leukocyte Esterase (Negative) Urine RBC (0-5) /hpf Urine WBC (0-5) /hpf Ur Squamous Epith Cells (0-4) /hpf - Radiology Data Radiology results: report reviewed, image reviewed Disposition Clinical Impression: Abdominal pain, Nicotine dependence Disposition: HOME SELF-CARE Instructions (If sedation given, give patient instructions): Abdominal Pain (ED) Additional Instructions: Return to the emergency department with any new, worsening, or concerning symptoms. Take the Toradol with Tylenol as needed for pain relief. If you choose to take the Toradol, do not take any other anti-inflammatories such as ibuprofen, take one or the other. Take the Robaxin as 1 to 2 tablets up to 3-4 times daily. Be aware that this may make you drowsy. Become established with a primary care provider for ongoing care and reevaluation of symptoms. Prescriptions: methocarbamoL [Robaxin-750] 1,500 mg PO TID PRN #30 tab PRN Reason: Pain Ketorolac [Toradol] 10 mg PO Q6HR PRN #15 tab PRN Reason: Pain Is patient prescribed a controlled substance at d/c from ED?: No Referrals: None,Stated [Primary Care Provider] - 1-2 days Forms: PH Area PCPs Time of Disposition: 19:18
--- NOTE | 2024-06-16 17:19 | CT ---
EXAMINATION TYPE: CT abdomen pelvis wo con CT DLP: 331.2 mGycm, Automated exposure control for dose reduction was used. DATE OF EXAM: 06/16/2024 5:01 PM COMPARISON: 08/20/2023 CLINICAL INDICATION: Female, 48 years old with history of Left flank pain; left flank pain TECHNIQUE: Axial CT abdomen pelvis wo con;Sagittal and coronal reformats were created on a separate workstation. Contrast used: mL of , (none if empty) Oral contrast used: without Oral Contrast (none if empty) FINDINGS: LOWER CHEST: Unremarkable ABDOMEN LIVER: Unremarkable GALLBLADDER AND BILE DUCTS: Unremarkable. PANCREAS: Unremarkable. SPLEEN: Unremarkable. ADRENAL GLANDS: Unremarkable. KIDNEYS AND URETERS: No evidence of hydronephrosis or renal calculus. The ureters are unremarkable. PELVIS BLADDER: Unremarkable REPRODUCTIVE: Unremarkable. ABDOMEN & PELVIS STOMACH AND BOWEL: No evidence of bowel obstruction. Surgical clips in right lower quadrant. PERITONEUM/RETROPERITONEUM: No evidence of pneumoperitoneum or free fluid. VASCULATURE: No evidence of aortic aneurysm. MUSCULOSKELETAL: No acute osseous abnormalities LYMPH NODES: No gross evidence for lymphadenopathy. SOFT TISSUE/ABDOMINAL WALL: Unremarkable IMPRESSION: No evidence for affective uropathy or renal calculus. No acute osseous process to explain the patient 's pain. [facility], , 06/16/2024 5:17 PM
[2024-06-16 17:45] LABS: Basophils % (A) 0 %; Eosinophils # (A) 0.1 k/uL (0-0.7); Eosinophils % (A) 1 %; HCT 40.8 % (34.0-46.0); HGB 13.6 gm/dL (11.4-16.0); Lymphocytes # (A) 3.1 k/uL (1.0-4.8); Lymphocytes % (A) 32 %; MCH 32.8 pg (25.0-35.0); MCHC 33.4 g/dL (31.0-37.0); MCV 98.2 fL (80.0-100.0); Mean Platelet Volume 7.1; Monocytes # (A) 0.4 k/uL (0-1.0); Monocytes % (A) 5 %; Neutrophils # (A) 5.9 k/uL (1.3-7.7); Neutrophils % (A) 61 %; Platelet Count 426 k/uL (150-450); RBC 4.16 m/uL (3.80-5.40); WBC 9.7 k/uL (3.8-10.6)
[2024-06-16] MEDS: methocarbamoL 500 MG TAB PO STA (17:57)
[2024-06-16] MEDS: Acetaminophen-Codeine 300-30mg TAB PO STA (17:58)
[2024-06-16] MEDS: SODIUM CHLORIDE 0.9% 1,000 ML IV STA (17:59)
[2024-06-16] MEDS: KETOROLAC 15 MG/ML 1 ML VIAL IVP STA (18:05)
[2024-06-16 18:06] LABS: Appearance,Urine Clear (Clear); Bilirubin,Urine Negative (Negative); Blood,Urine Trace (Negative); Color,Urine Colorless; Glucose,Urine (UA) Negative (Negative); Ketones,Urine Negative (Negative); Leukocyte Esterase,Urine Negative (Negative); Nitrite,Urine Negative (Negative); Protein,Urine Negative (Negative); RBC,Urine <1 /hpf (0-5); Specific Gravity,Urine 1.003 (1.001-1.035); Squamous Epithelial Cell,Urine <1 /hpf (0-4); Urobilinogen,Urine <2.0 mg/dL (<2.0); WBC,Urine <1 /hpf (0-5)
[2024-06-16 18:07] LABS: ALT 26 U/L (4-34); AST 27 U/L (14-36); African American GFR (CKD) >90 (>60 ml/min/1.73 sqM); Alkaline Phosphatase 57 U/L (38-126); Amylase 43 U/L (30-110); Anion Gap 6 mmol/L; Blood Urea Nitrogen 9 mg/dL (7-17); Calcium 9.9 mg/dL (8.4-10.2); Carbon Dioxide 24 mmol/L (22-30); Chloride 108 mmol/L (98-107); Glucose 87 mg/dL (74-99); Lipase 56 U/L (23-300); Non-African American GFR(CKD) >90 (>60 ml/min/1.73 sqM); Potassium 3.9 mmol/L (3.5-5.1); Sodium 138 mmol/L (137-145); Total Bilirubin 1.1 mg/dL (0.2-1.3); Total Protein 7.5 g/dL (6.3-8.2)
[2024-06-16] MEDS: ACET/COD 300 MG/30 MG STARTER PACK 6 TAB BTL PO STA (19:32)
[2024-06-16] MEDS: CYCLOBENZAPRINE 10MG STARTER 3 TAB BTL PO STA (19:33)
[2024-06-16] MEDS: IBUPROFEN 600 MG STARTER PACK 4 TAB BTL PO STA (19:34)
[2024-06-16 19:42] VITALS: BP 147/92; PULSE 73; RESP 18; TEMP 97.9
== END 2024-06-16 19:42 | disposition home or self-care (01) ==
LOC: EC 15:44
CPT/HCPCS: 36415; 74176; 80053; 81001; 82150; 83605; 83690; 85025; 93005; 96361; 96374; 99284